=== PATIENT | female | born 1930 | race Caucasian/White ===

== ENCOUNTER 2016-10-19 17:25 | Emergency (ER) | payer OTHER, MEDICARE ==
[~2016-10-19] VITALS: Ht 162.6 cm; Wt 90.7 kg
--- NOTE | ~2016-10-19 | EKG ---
[place] [address] [facility] [place] [address] ELECTROCARDIOGRAM REPORT Name: MARIA DEL CARMEN COTE [id number] Admission: 10/19/16 Attend Phys: Discharge: 10/19/16 Date of : 28 Report #: [id number] THIS REPORT FOR: //name// [facility] ED Test Date: 2016-10-19 Test Time: 19:39:21 Pat Name: MARIA DEL CARMEN COTE Department: Room: Gender: F Human Resources Supervisor: Estefani NIXON : 1930 Requested By: Curtis Haile Order Number: [id number] MD: Anish Blancas Measurements Intervals [place] Rate: 73 P: 78 MN: 181 QRS: 75 QRSD: 157 T: 2 QT: 425 QTc: 469 Interpretive Statements Sinus rhythm Right bundle branch block Baseline wander in lead(s) II,aVF No previous ECG available for comparison Electronically Signed On 10-20-2016 8:14:09 CDT by Anish Blancas [email or web address] <ELECTRONICALLY SIGNED> By: Anish Blancas MD, [facility] 10/20/16813 38 38 Anish Blancas MD, FACC /EPI
[~2016-10-19 17:25] MED LIST: ALPRAZOLAM 0.0.25 M1; AMLODIPINE BESY10 MG PO; ASPIRIN EC81 M1 PO; CARVEDILOL3.125 MG PO; DILTIAZEM ER120 M1 PO; DIOVAN HCT 3201 EAC1 PO; HYDROCODON-ACE1 EACH; LEVOXYL137 MCG PO; PROAIR HFA8.5 GM; SIMVASTATIN40 MG PO; SYMBICORT80 MCG/4.5; ZPAK PO
[2016-10-19] MEDS ORDERED: DUONEB 2.5-0.5 M3 ML INH (18:44)
[2016-10-19] MEDS ORDERED: VITAMIN B-12500 MCG PO (18:45)
[2016-10-19] MEDS ORDERED: ALDACTONE50 MG PO (18:45)
[2016-10-19] MEDS ORDERED: LEVALBUTER1.25 MG/0. INH (18:46)
[2016-10-19] MEDS ORDERED: LYRICA 50 MG50 MG PO (18:47)
[2016-10-19] MEDS ORDERED: SYNTHROID175 MCG PO (18:47)
[2016-10-19] MEDS ORDERED: FLONASE 0.05%50 MCG NASAL (18:48)
[2016-10-19] MEDS ORDERED: OMEPRAZOLE40 MG PO (18:51)
[2016-10-19] MEDS ORDERED: BREO ELLIPTA 21 EACH INH (18:51)
[2016-10-19] MEDS ORDERED: ZANTAC 150MG T150 M1 PO (18:52)
[2016-10-19] MEDS ORDERED: ONDANSETRON HCL4 M2 PO (18:53)
[2016-10-19] MEDS ORDERED: BENTYL 10 MG CA10 M1 PO (18:54)
[2016-10-19 19:09] LABS: ABSOLUTE NEUTROPHILS 5.7 thou/uL (1.4-8.2); BASOPHILS 0.5 % (0.0-2.0); HEMATOCRIT 33.7 % (37.0-47.0); HEMOGLOBIN 10.9 gm/dL (12.0-15.0); LYMPHOCYTES 21.2 % (24.0-44.0); MCH 29.8 pg (26.0-34.0); MCHC 32.4 g/dL (28.0-37.0); MCV 91.8 fL (80.0-100.0); MONOCYTES 7.1 % (1.0-8.0); PLATELET COUNT 203 thou/uL (150-400); POLYS 70.2 % (36.0-66.0); RBC 3.67 mil/uL (4.20-5.00); RDW 13.1 % (10.5-14.5); WBC 8.1 thou/uL (4.0-11.0)
[2016-10-19 19:17] LABS: MANUAL DIFF NO
[2016-10-19 19:19] LABS: CALCIUM 9.8 mg/dL (8.5-10.1); CREATININE 1.2 mg/dL (0.6-1.0); POTASSIUM 4.9 mmol/L (3.5-5.1)
[2016-10-19 19:21] LABS: URINE BILIRUBIN NEGATIVE (Negative); URINE BLOOD TRACE (Negative); URINE COLOR YELLOW; URINE GLUCOSE-RANDOM* NEGATIVE (Negative); URINE KETONES NEGATIVE (Negative); URINE PROTEIN (DIPSTICK) NEGATIVE (Negative); URINE UROBILINOGEN 0.2 E.U./dl (0.2-1.0)
[2016-10-19 19:25] LABS: ALBUMIN 3.6 g/dL (3.4-5.0); TOTAL BILIRUBIN 0.2 mg/dL (<0.1-1.0); TOTAL PROTEIN 7.8 g/dL (6.4-8.2)
[2016-10-19 19:26] LABS: URINE LEUKOCYTES-REFLEX 1+ (Negative)
[2016-10-19 19:39] LABS: CASTS None Seen /LPF (None Seen); SQUAMOUS >10 Many /LPF (0-3); URINE RBC 0-2 Rare /HPF (0-2); URINE WBC-REFLEX >25 Many /HPF (0-5)
[2016-10-19 19:40] LABS: CRYSTALS None Seen /LPF (None Seen); WBC CLUMPS Few (None Seen)
[2016-10-19] MEDS ORDERED: REGLAN 10 MG TA10 MG PO (21:09)
[2016-10-19] MEDS ORDERED: KEFLEX500 MG PO (21:09)
[2016-10-19 21:34] VITALS: BP 175/39
== END 2016-10-19 21:25 | disposition home or self-care (01) ==
LOC: ER 17:25
PROVIDERS: Physician Assistant
DX: N39.0 Urinary tract infection, site not specified (principal); R11.0 Nausea; I10 Essential (primary) hypertension; J44.9 Chronic obstructive pulmonary disease, unspecified; Z85.038 Personal history of other malignant neoplasm of large intestine; Z90.10 Acquired absence of unspecified breast and nipple

== ENCOUNTER 2018-01-04 15:25 | Emergency (ER) | payer OTHER, MEDICARE ==
[~2018-01-04] VITALS: Ht 162.6 cm; Wt 90.7 kg
--- NOTE | ~2018-01-04 | EKG ---
[place] [address] [facility] [place] [address] ELECTROCARDIOGRAM REPORT Name: MARIA DEL CARMEN COTE Room #: [facility]#: [id number] Admission: Attend Phys: Discharge: Date of : 28 Report #: [id number] THIS REPORT FOR: //name// [facility] ED Test Date: 2018-01-04 Test Time: 16:06:38 Pat Name: MARIA DEL CARMEN COTE Department: Room: Gender: F Senior Tax Accountant: nancy : 1930 Requested By: Shireen Garza Order Number: [id number] MD: José Luis Welch Measurements Intervals [place] Rate: 69 P: 69 SD: 168 QRS: 63 QRSD: 148 T: 13 QT: 426 QTc: 457 Interpretive Statements Sinus rhythm Atrial premature complex Right bundle branch block Baseline wander in lead(s) V5 Compared to ECG 10/19/2016 19:39:21 Atrial premature complex(es) now present Electronically Signed On 01-04-2018 16:29:08 REPATCHER by José Luis Welch [email or web address] <ELECTRONICALLY SIGNED> By: José Luis Welch MD 01/04/18 1629 05 05 José Luis Welch MD /NGHIA
[~2018-01-04 15:25] MED LIST changes: +ALDACTONE50 MG PO; +BENTYL 10 MG CA10 M1 PO; +BREO ELLIPTA 21 EACH INH; +DUONEB 2.5-0.5 M3 ML INH; +FLONASE 0.05%50 MCG NASAL; +KEFLEX500 MG PO; +LEVALBUTER1.25 MG/0. INH; +LYRICA 50 MG50 MG PO; +OMEPRAZOLE40 MG PO; +ONDANSETRON HCL4 M2 PO; +REGLAN 10 MG TA10 MG PO; +SYNTHROID175 MCG PO; +VITAMIN B-12500 MCG PO; +ZANTAC 150MG T150 M1 PO
[2018-01-04 16:07] LABS: ABSOLUTE NEUTROPHILS 6.3 thou/uL (1.4-8.2); BASOPHILS 0.4 % (0.0-2.0); EOSINOPHILS 0.5 % (0.0-3.0); HEMATOCRIT 28.7 % (37.0-47.0); HEMOGLOBIN 9.7 gm/dL (12.0-15.0); LYMPHOCYTES 15.5 % (24.0-44.0); MCH 31.3 pg (26.0-34.0); MCHC 33.8 g/dL (28.0-37.0); MCV 92.6 fL (80.0-100.0); MONOCYTES 6.5 % (1.0-8.0); PLATELET COUNT 215 thou/uL (150-400); POLYS 77.1 % (36.0-66.0); RDW 13.3 % (10.5-14.5); WBC 8.2 thou/uL (4.0-11.0)
[2018-01-04 16:11] LABS: ANION GAP 9 mmol/L (7-16); BUN 31 mg/dL (7-18); CALCIUM 9.8 mg/dL (8.5-10.1); CHLORIDE 107 mmol/L (98-107); CO2 24 mmol/L (21-32); CREATININE 1.3 mg/dL (0.6-1.0); GLUCOSE 95 mg/dL (74-106); POTASSIUM 4.8 mmol/L (3.5-5.1); SODIUM 140 mmol/L (136-145)
[2018-01-04 16:20] LABS: ALBUMIN 3.4 g/dL (3.4-5.0); SGOT 18 U/L (15-37); SGPT 21 U/L (30-65); TOTAL BILIRUBIN 0.2 mg/dL (<0.1-1.0); TOTAL PROTEIN 7.3 g/dL (6.4-8.2); TROPONIN-I <0.06 ng/mL (<0.06)
[2018-01-04] MEDS ORDERED: ZPAK PO (17:46)
[2018-01-04] MEDS ORDERED: GUAIFEN-CODEINE10 ML PO (17:46)
[2018-01-04] MEDS ORDERED: PREDNISONE 20 M20 MG PO (17:46)
[2018-01-04 18:01] VITALS: BP 146/46
== END 2018-01-04 18:11 | disposition home or self-care (01) ==
LOC: ER 15:25
PROVIDERS: Emergency Medicine
DX: J44.1 Chronic obstructive pulmonary disease with (acute) exacerbation (principal); I10 Essential (primary) hypertension; Z88.2 Allergy status to sulfonamides; Z90.13 Acquired absence of bilateral breasts and nipples; Z85.038 Personal history of other malignant neoplasm of large intestine